=== PATIENT | female | born 1945 | race Caucasian/White ===

== ENCOUNTER 2021-10-05 15:36 | Inpatient (IN) | payer MEDICARE ==
[~2021-10-05] VITALS: Ht 154.9 cm; Wt 60.3 kg
--- NOTE | ~2021-10-05 | EMS ---
[facility] [address] [place] [address] EMS Patient Care Report Name: HAYDEN ANTONIO Room: [address] IN [facility]#: [id number] Admission: 10/05/21 Attend Phys: Jonas Sanchez Discharge: Date of : 43 Report #: [id number] THIS REPORT FOR: //name// Report Transmitted: 10/05/2021 18:54 EMS Care Summary [facility] Incident [phone] @ 10/05/2021 14:44 Incident Location [address] [place] [address] Patient HAYDEN ANTONIO Female, 76 Years 1945 Patient Address [address] [place] [address] Patient History Chronic Obstructive Pulmonary Disease (COPD),Emphysema,Anxiety, Patient Allergies Codeine,Sulfa, Patient Medications Albuterol, Klonopin, Wellbutrin, Anoro, Chief Complaint COPOD Disposition Transported No Lights/[place] Reason Breathing Problem Transported To [facility] Narrative Dispatched to a residence for 76y/o female c/o SOB. Upon arrival home health was on scene. Pt. was A&Ox4, GCS15, lying on a couch wearing O2 via [place], and [facility] [address] [place] [address] EMS Patient Care Report Name: HAYDEN ANTONIO Room: [address] IN [facility]#: [id number] Admission: 10/05/21 Attend Phys: Jonas Sanchez Discharge: Date of : 43 Report #: [id number] Albuterol breathing treatment in process. Pt. skin was pale and she was only speaking 1-2 words at a time. Pt. stated that she has bee SOB all day today and nothing is helping. Breath sounds wer diminished with wheezes in upper hess. Pt. stated that she would like to be transported to [place]. Pt. was moved to ambulance and Duoneb started. IV was started and 125mg Solu-Medrol administered IV. En route pt. began speaking in full sentences, color and breath sounds improved. Pt. stated that she felt like she was SOB and "made it worse by panicking". Pt. VS were stable. Pt. was transported to [place] for emergency services. Initial Vitals @15:29P: 99,R: 20,BP: 133/51,GCS: 15,SpO2: 98,Revised Trauma: 12, @15:15P: 101,R: 20,BP: 134/66,GCS: 15,SpO2: 98,Revised Trauma: 12, @14:55P: 103,R: 24,BP: 175/70,GCS: 15,Glucose: 135,SpO2: 95,Revised Trauma: 12, Impression Chronic Obstructive Pulmonary Disease (COPD) Procedures @PTAOxygen FlowRate: 4 Device: Nasal Cannula (NC) Response: UnchangedSucceeded @15:00 Duoneb - 3.5 Milligrams (mg) - Non-Rebreather Mask Response: Improved @15:02 IV Therapy - Saline Lock 30cc (20 ga) Site: Forearm-Right Response: UnchangedSucceeded @15:05 Solu-Medrol - 125 Milligrams (mg) - Inhalation Response: Improved Timeline [employer],Oxygen FlowRate: 4 Device: Nasal Cannula (NC) Response: UnchangedSucceeded, 14:42,Call Received 14:44,Dispatched 14:46,En Route 14:48,Initial Responder On Scene 14:48,On Scene 14:50,At Patient 14:55,BP: 175/70 M,PULSE: 103,RR: 24 R,SPO2: 95 Ox,ETCO2: ,B,PAIN: ,GCS: 15, 15:00,Duoneb - 3.5 Milligrams (mg) - Non-Rebreather Mask,Response: Improved 15:02,IV Therapy - Saline Lock 30cc 20 ga Site: Forearm-Right,Response: UnchangedSucceeded, 15:05,Solu-Medrol - 125 Milligrams (mg) - Inhalation,Response: Improved 15:09,Depart Scene 15:15,BP: 134/66 M,PULSE: 101,RR: 20 R,SPO2: 98 Ox,ETCO2: ,BG: ,PAIN: ,GCS: 15, 15:29,BP: 133/51 M,PULSE: 99,RR: 20 R,SPO2: 98 Ox,ETCO2: ,BG: ,PAIN: ,GCS: 15, 15:32,At Destination 15:34,[place] [address] EMS Patient Care Report Name: HAYDEN ANTONIO Room: [address] IN M.R.#: [id number] Admission: 10/05/21 Attend Phys: Jonas Sanchez Discharge: Date of : 43 Report #: [id number] 15:45,Call Closed 16:10,In District Disclaimer v1.1 Copyright 2021 [employer] This EMS Care Summary contains data elements from the applicable legal record (which may be displayed differently). It is designed to provide pertinent information for the following purposes: continuity of care, clinical quality, and state data reporting. The complete legal record is available to ED staff and administrators of the receiving hospital in [facility]'s Patient Tracker. All data is provided "as is."
[~2021-10-05 15:36] MED LIST: ALBUTEROL SULFATE PO; APAP500 PO; CELEXA20 MG PO; DIPHENHIST50 MG PO; DUONEB 2.5-0.5 M3 ML INH; LEVAQUIN 500 M500 M2 PO; MAGOX 400400 MG PO; PREDNISONE 10 M10 MG PO; PROTONIX40 M1 PO; SINGULAIR 10 MG10 M1 PO; ZYPREXA5 MG PO
[2021-10-05 15:39] VITALS: BP 143/82
[2021-10-05 15:55] LABS: ABSOLUTE BASOPHILS 0.1 thou/uL (0.0-0.2); ABSOLUTE EOSINOPHILS 0.1 thou/uL (0.0-0.7); ABSOLUTE LYMPHOCYTES 1.3 thou/uL (0.8-5.3); ABSOLUTE MONOCYTES 0.6 thou/uL (0.0-1.2); ABSOLUTE NEUTROPHILS 7.2 thou/uL (1.6-8.1); BASOPHILS 1.2 %; HEMATOCRIT 29.5 % (37.0-47.0); LYMPHOCYTES 13.7 %; MCH 24.1 pg (26.0-34.0); MCHC 30.4 g/dL (28.0-37.0); MCV 79.2 fL (80.0-100.0); MPV 7.5 fl. (7.2-11.1); NUCLEATED RBCS 0 /100WBC; PLATELET COUNT* 761 thou/uL (150-400); POLYS 77.1 %; RBC 3.73 mil/uL (4.20-5.00); WBC 9.3 thou/uL (4.0-11.0)
[2021-10-05 16:07] LABS: CALCIUM 8.3 mg/dL (8.5-10.1); CREATININE 0.5 mg/dL (0.6-1.3)
[2021-10-05 16:18] LABS: ALBUMIN 2.9 g/dL (3.4-5.0); TOTAL BILIRUBIN 0.3 mg/dL (<0.1-1.0); TOTAL PROTEIN 6.1 g/dL (6.4-8.2)
[2021-10-05 18:08] VITALS: BP 110/53
[2021-10-05 20:00] VITALS: BP 137/62
[2021-10-05 23:59] VITALS: BP 137/67
[2021-10-06 04:36] VITALS: BP 130/61
[2021-10-06 08:00] VITALS: BP 139/67
--- NOTE | 2021-10-06 09:49 | EKG ---
[place] [address] ELECTROCARDIOGRAM REPORT Name: HAYDEN ANTONIO Room: [address] IN [facility]#: [id number] Admission: 10/05/21 Attend Phys: Darius Marquez Discharge: Date of : 43 Date of Service: 10/05/21 1548 Report #: [id number] THIS REPORT FOR: //name// [facility] ED Test Date: 2021-10-05 Test Time: 15:48:53 Pat Name: HAYDEN ANTONIO Department: Room: [facility] Gender: F Mat Worker: DAY : 1945 Requested By: Amando Mckinney Order Number: [id number] MD: Dipak Jimenez Measurements Intervals [place] Rate: 103 P: 66 VA: 133 QRS: 95 QRSD: 122 T: 241 QT: 350 QTc: 458 Interpretive Statements Sinus tachycardia Nonspecific intraventricular conduction delay Nonspecific repol abnormality, diffuse leads Baseline wander in lead(s) V1 Electronically Signed On 10-06-2021 9:49:22 WIRELESS FIELD TECHNICIAN by Dipak Jimenez [email or web address] <ELECTRONICALLY SIGNED> By: Dipak Jimenez MD, [facility] 10/06/21 0949 1548 1548 Dipak Jimenez MD, [facility] /EPI
[2021-10-06 14:00] VITALS: BP 133/58
[2021-10-06 18:29] VITALS: BP 121/65
[2021-10-06 20:00] VITALS: BP 152/79
== END 2021-10-07 | DRG 177 ==
LOC: M.ERS 15:36 → M.TBA-ER 16:19 → M.2W 16:19
PROVIDERS: Family Medicine; Internal Medicine; ADMIT Internal Medicine; ATTEND Internal Medicine
DX: J15.6 Pneumonia due to other Gram-negative bacteria (principal); J96.21 Acute and chronic respiratory failure with hypoxia; J44.1 Chronic obstructive pulmonary disease with (acute) exacerbation; J44.0 Chronic obstructive pulmonary disease with (acute) lower respiratory infection; E44.0 Moderate protein-calorie malnutrition; Z20.822 Contact with and (suspected) exposure to COVID-19; J20.9 Acute bronchitis, unspecified; D64.9 Anemia, unspecified; R54 Age-related physical debility; Z88.6 Allergy status to analgesic agent; Z88.8 Allergy status to other drugs, medicaments and biological substances; Z87.891 Personal history of nicotine dependence; Z68.25 Body mass index [BMI] 25.0-25.9, adult